=== PATIENT | male | born 1970 | race Caucasian/White ===

== ENCOUNTER 2018-03-15 05:54 | Emergency (ER) | payer OTHER ==
[~2018-03-15] VITALS: Ht 165.1 cm; Wt 68.0 kg
--- NOTE | ~2018-03-15 | EKG ---
[address] [address] ELECTROCARDIOGRAM REPORT Name: RANDALLALEXIS PENNY Room #: DEP Prakash#: [id number] Admission: 03/15/18 Attend Phys: Discharge: 03/15/18 Date of : 68 Report #: [id number] THIS REPORT FOR: //name// [facility] ED Test Date: 2018-03-15 Test Time: 05:57:02 Pat Name: ALEXIS PEREIRA Department: Room: Gender: M Survey Compiler: SUDHA MONTIEL : 1970 Requested By: Jorge Reese Order Number: [id number] MD: Faizan Casanova Measurements Intervals [place] Rate: 93 P: 65 [place]: 133 QRS: 50 QRSD: 80 T: 67 QT: 336 QTc: 418 Interpretive Statements Sinus rhythm Normal tracing No previous ECG available for comparison Electronically Signed On 03-15-2018 8:36:36 CELLAR SUPERVISOR by Faizan Casanova [email or web address] <ELECTRONICALLY SIGNED> By: Faizan Casanova MD, [facility] 03/15/18 [id number] Faizan Casanova MD, FAC /EPI
[2018-03-15] MEDS ORDERED: EXCEDRIN CAPLE1 EACH (06:00)
[2018-03-15 06:15] LABS: ABSOLUTE NEUTROPHILS 9.6 thou/uL (1.4-8.2); BASOPHILS 0.6 % (0.0-2.0); EOSINOPHILS 0.2 % (0.0-3.0); HEMATOCRIT 41.5 % (42.0-52.0); HEMOGLOBIN 14.4 gm/dL (14.0-18.0); LYMPHOCYTES 15.2 % (24.0-44.0); MCH 32.8 pg (26.0-34.0); MCHC 34.7 g/dL (28.0-37.0); MCV 94.8 fL (80.0-100.0); MONOCYTES 7.7 % (1.0-8.0); PLATELET COUNT 268 thou/uL (150-400); POLYS 76.3 % (36.0-66.0); RBC 4.37 mil/uL (4.50-6.00); RDW 13.2 % (10.5-14.5); WBC 12.6 thou/uL (4.0-11.0)
[2018-03-15 06:27] LABS: ANION GAP 16 mmol/L (7-16); BUN 13 mg/dL (7-18); CALCIUM 9.3 mg/dL (8.5-10.1); CHLORIDE 102 mmol/L (98-107); CO2 23 mmol/L (21-32); SODIUM 141 mmol/L (136-145)
[2018-03-15 06:36] LABS: ALBUMIN 3.6 g/dL (3.4-5.0); MAGNESIUM 1.6 mg/dL (1.8-2.4); SGOT 58 U/L (15-37); SGPT 91 U/L (30-65); TOTAL BILIRUBIN 0.8 mg/dL (<0.1-1.0); TOTAL PROTEIN 7.4 g/dL (6.4-8.2); TROPONIN-I <0.06 ng/mL (<0.06)
[2018-03-15 06:40] LABS: GLUCOSE 77 mg/dL (74-106)
[2018-03-15 07:13] LABS: AMP/METHAMP POSITIVE (Negative); BARBITURATES Negative (Negative); BENZODIAZEPINES Negative (Negative); COCAINE Negative (Negative); METHADONE Negative (Negative); OPIATES Negative (Negative); PCP Negative (Negative)
[2018-03-15 07:36] VITALS: BP 120/76
== END 2018-03-15 07:37 | disposition home or self-care (01) ==
LOC: ER 05:54
PROVIDERS: Emergency Medicine
DX: R07.89 Other chest pain (principal); F31.9 Bipolar disorder, unspecified; F41.9 Anxiety disorder, unspecified